=== PATIENT | female | born 1970 ===

== ENCOUNTER 2019-08-23 09:06 | Emergency (ER) | payer BC ==
[2019-08-23 09:18] VITALS: BP 102/58
--- NOTE | 2019-08-23 12:52 | UC ---
Complaint Female HPI - HPI Summary HPI Summary: 49 year old female with no PMH, no medications presents with lower abdominal pain, lower back pain x 2-3 days, increased urinary frequency, urgency, burning with urination, cloudy urine with discoloration. + chills, low grade fever 99 last night. no N/V, no other symptoms. no UTI in past. - History Of Current Complaint Chief Complaint: UCGU Stated Complaint: ABD PAIN Time Seen by Provider: 08/23/19 09:37 Hx Obtained From: Patient ?: No Onset/Duration: Gradual Onset, Lasting Days, Still Present Timing: Constant Severity Initially: Moderate Severity Currently: Moderate Pain Intensity: 3 Pain Scale Used: 0-10 Numeric Character: Burning, Cramping Aggravating Factor(s): Urination Associated Signs And Symptoms: Positive: Fever, Back Pain. Negative: Vaginal Bleeding/Discharge, Vaginal Discharge, Nausea, Genital Swelling, Genital Blisters - Allergies/Home Medications Allergies/Adverse Reactions: Allergies Allergy/AdvReac Type Severity Reaction Status Date / Time No Known Allergies Allergy Verified 08/23/19 09:12 Home Medications: Home Medications Ranitidine HCl (Nf) [Zantac] 1 tab PO ONCE 08/23/19 [History Confirmed 08/23/19] PMH/Surg Hx/FS Hx/Imm Hx Previously Healthy: Yes - Surgical History Surgical History: Unable to Obtain/Confirm - Family History Known Family History: Positive: Non-Contributory - Social History Occupation: Employed Full-time Alcohol Use: None Substance Use Type: None Smoking Status (MU): Never Smoked Tobacco Review of Systems All Other Systems Reviewed And Are Negative: Yes Constitutional: Positive: Fever, Chills, Fatigue Genitourinary: Positive: Dysuria, Hematuria, Frequency, Urgency. Negative: Vaginal/Penile Burning, Vaginal/Penile Itching, Vaginal/Penile Discharge, Vaginal/Penile Pain, Vaginal/Penile Tenderness, Ulceration/Lesion Is Patient Immunocompromised?: No Physical Exam Triage Information Reviewed: Yes Appearance: Well-Appearing, No Pain Distress, Well-Nourished Vital Signs: Initial Vital Signs Temp 97.4 F 08/23/19 09:14 Pulse 72 08/23/19 09:14 Resp 18 08/23/19 09:14 BP 102/58 08/23/19 09:14 Pulse Ox 99 08/23/19 09:14 Vital Signs Reviewed: Yes Eyes: Positive: Conjunctiva Clear Respiratory: Positive: Chest non-tender, Lungs clear, Normal breath sounds, No respiratory distress, No accessory muscle use. Negative: Crackles, Rhonchi, Stridor, Wheezing Cardiovascular: Positive: RRR Abdomen Description: Positive: Soft, Other: - TTP suprapubic area, lower back b/ l. Negative: CVA Tenderness (R), CVA Tenderness (L), Distended, Guarding Neurological: Positive: Alert Psychological: Positive: Normal Response To Family Skin Exam: Normal Skin: Positive: Rashes Complaint Female Dx - Course Course Of Treatment: UTI - Follow up with primary physician within 2-3 days if no improvement - Go to ER with increased pain, fever > 101, vomiting, flank pain - Tylenol/ MOtrin as needed for pain - Bactrim twice daily x 3 days for symptoms - Increase fluid intake - Differential Dx/Diagnosis Differential Diagnosis/HQI/PQRI: Appendicitis, Urinary Tract Infection Provider Diagnosis: UTI (urinary tract infection) Discharge ED - Sign-Out/Discharge Documenting (check all that apply): Patient Departure All imaging exams completed and their final reports reviewed: No Studies - Discharge Plan Condition: Good Disposition: HOME Prescriptions: Sulfamethox/Trimethoprim DS* [Bactrim DS 800/160 TAB*] 1 tab PO BID #6 tab Patient Education Materials: Urinary Tract Infection in Women (ED) Referrals: Brook Anaya MD [Primary Care Provider] - Additional Instructions: UTI - Follow up with primary physician within 2-3 days if no improvement - Go to ER with increased pain, fever > 101, vomiting, flank pain - Tylenol/ MOtrin as needed for pain - Bactrim twice daily x 3 days for symptoms - Increase fluid intake - Billing Disposition and Condition Condition: GOOD Disposition: Home
--- NOTE | 2019-08-25 10:19 | UC ---
- Progress Note Progress Note: urine + E. Coli on bactrim sensitivity pending no change angelaj 08/25/19 Course/Dx - Diagnoses Provider Diagnoses: UTI (urinary tract infection) Discharge ED - Sign-Out/Discharge Documenting (check all that apply): Post-Discharge Follow Up All imaging exams completed and their final reports reviewed: No Studies - Discharge Plan Condition: Good Disposition: HOME Prescriptions: Sulfamethox/Trimethoprim DS* [Bactrim DS 800/160 TAB*] 1 tab PO BID #6 tab Patient Education Materials: Urinary Tract Infection in Women (ED) Referrals: Brook Anaya MD [Primary Care Provider] - Additional Instructions: UTI - Follow up with primary physician within 2-3 days if no improvement - Go to ER with increased pain, fever > 101, vomiting, flank pain - Tylenol/ MOtrin as needed for pain - Bactrim twice daily x 3 days for symptoms - Increase fluid intake - Billing Disposition and Condition Condition: GOOD Disposition: Home
== END 2019-08-23 10:06 | disposition home or self-care (01) ==
LOC: UCEAST 09:06
DX: N39.0 Urinary tract infection, site not specified (principal)
CPT/HCPCS: 81003; 87077; 87086; 87186; 99212; G0463